=== PATIENT | female | born 1965 | race Asian ===

== ENCOUNTER 2019-10-06 15:16 | Emergency (ER) | payer OTHER ==
[~2019-10-06] VITALS: Ht 160 cm; Wt 68.0 kg
[2019-10-06 15:25] VITALS: BP 133/78
--- NOTE | 2019-10-06 16:00 | NUR ---
Patient discharged to home in stable condition. Written and verbal after care instructions given. Patient verbalizes understanding of instruction.
== END 2019-10-06 16:00 | disposition home or self-care (01) ==
LOC: ER 15:19
DX: Z11.59 Encounter for screening for other viral diseases (principal)
CPT/HCPCS: 99283; U0003

== ENCOUNTER 2019-11-03 15:12 | Emergency (ER) | payer OTHER ==
[~2019-11-03] VITALS: Ht 152.4 cm; Wt 49.9 kg
[2019-11-03 15:24] VITALS: BP 127/85
== END 2019-11-03 15:37 | disposition home or self-care (01) ==
LOC: ER 15:14
DX: Z03.818 Encounter for observation for suspected exposure to other biological agents ruled out (principal)
CPT/HCPCS: 99283; C9803; U0003

== ENCOUNTER 2019-11-15 11:03 | Emergency (ER) | payer OTHER ==
[~2019-11-15] VITALS: Ht 154.9 cm; Wt 68.0 kg
[2019-11-15 11:09] VITALS: BP 139/70
--- NOTE | 2019-11-15 11:37 | NUR ---
Patient discharged to home in stable condition. Written and verbal after care instructions given. Patient verbalizes understanding of instruction.
== END 2019-11-15 11:37 | disposition home or self-care (01) ==
LOC: ER 11:03
DX: Z03.818 Encounter for observation for suspected exposure to other biological agents ruled out (principal)
CPT/HCPCS: 99283; C9803; U0003

== ENCOUNTER 2019-11-25 08:17 | Emergency (ER) | payer OTHER ==
[~2019-11-25] VITALS: Ht 154.9 cm; Wt 68.0 kg
[2019-11-25 08:24] VITALS: BP 145/86
--- NOTE | 2019-11-25 08:40 | NUR ---
COVID SWAB OBTAINED AND SENT TO LAB.
--- NOTE | 2019-11-25 08:41 | NUR ---
Patient discharged to home in stable condition. Written and verbal after care instructions given. Patient verbalizes understanding of instruction.
== END 2019-11-25 08:42 | disposition home or self-care (01) ==
LOC: ER 08:17
DX: Z11.59 Encounter for screening for other viral diseases (principal)
CPT/HCPCS: 99283; C9803; U0003

== ENCOUNTER 2020-03-14 10:47 | Emergency (ER) | payer OTHER ==
[~2020-03-14] VITALS: Ht 160 cm; Wt 68.9 kg
[2020-03-14 10:53] VITALS: BP 136/67
--- NOTE | 2020-03-14 11:23 | NUR ---
COVID SWAB SENT. Patient discharged to home in stable condition. Written and verbal after care instructions given. Patient verbalizes understanding of instruction.
== END 2020-03-14 11:25 | disposition home or self-care (01) ==
LOC: ER 10:48
DX: Z20.828 Contact with and (suspected) exposure to other viral communicable diseases (principal)
CPT/HCPCS: 99283; C9803; U0003

== ENCOUNTER 2020-04-03 11:41 | Emergency (ER) | payer OTHER ==
[~2020-04-03] VITALS: Ht 154.9 cm; Wt 72.6 kg
[2020-04-03 11:41] VITALS: BP 152/82
== END 2020-04-03 12:20 | disposition home or self-care (01) ==
LOC: ER 11:44
DX: Z20.828 Contact with and (suspected) exposure to other viral communicable diseases (principal)
CPT/HCPCS: 99283; C9803; U0003

== ENCOUNTER 2020-04-17 11:00 | Emergency (ER) | payer OTHER ==
[~2020-04-17] VITALS: Ht 154.9 cm; Wt 72.6 kg
[2020-04-17 11:00] VITALS: BP 133/80
--- NOTE | 2020-04-17 12:08 | NUR ---
Patient discharged to home in stable condition. Written and verbal after care instructions given. Patient verbalizes understanding of instruction.
== END 2020-04-17 12:10 | disposition home or self-care (01) ==
LOC: ER 11:14
DX: Z20.828 Contact with and (suspected) exposure to other viral communicable diseases (principal)
CPT/HCPCS: 99283; C9803; U0003

== ENCOUNTER 2020-05-09 13:31 | Emergency (ER) | payer OTHER ==
[~2020-05-09] VITALS: Ht 154.9 cm; Wt 72.6 kg
[2020-05-09 13:33] VITALS: BP 138/81
== END 2020-05-09 14:07 | disposition home or self-care (01) ==
LOC: ER 13:32
DX: Z20.828 Contact with and (suspected) exposure to other viral communicable diseases (principal)
CPT/HCPCS: 99283; C9803; U0003

== ENCOUNTER 2022-10-09 07:02 | Outpatient (CLI) | payer BC ==
[2022-10-09 08:31] LABS: BILIRUBIN,URINE NEGATIVE (NEGATIVE); COLOR,URINE YELLOW (YELLOW); LEUKOCYTE ESTERASE ,URINE NEGATIVE (NEGATIVE); NITRITE, URINE NEGATIVE (NEGATIVE); PROTEIN,URINE NEGATIVE (NEGATIVE); UGLUCOSE NEGATIVE (NEGATIVE); UROBILINOGEN,URINE 0.2 EU/dL (0.2)
== END 2022-10-09 23:59 | disposition home or self-care (01) ==
LOC: LAB 07:02
PROVIDERS: ATTEND Family Medicine
DX: N39.0 Urinary tract infection, site not specified (principal)
CPT/HCPCS: 87086-TC